=== PATIENT | male | born 1935 ===

== ENCOUNTER 2017-10-28 00:59 | Outpatient (CLI) | payer OTHER | END 2017-10-28 23:59 | disposition home or self-care (01) | LOC: DIABETIC 00:59 | PROVIDERS: ATTEND Specialist | DX: E11.9 Type 2 diabetes mellitus without complications (principal); Z79.82 Long term (current) use of aspirin; Z79.84 Long term (current) use of oral hypoglycemic drugs | CPT/HCPCS: G0108 ==

== ENCOUNTER 2018-01-27 04:57 | Outpatient (CLI) | payer OTHER | END 2018-01-27 23:59 | disposition home or self-care (01) | LOC: DIABETIC 04:57 | PROVIDERS: ATTEND Specialist | DX: E11.9 Type 2 diabetes mellitus without complications (principal) | CPT/HCPCS: G0108 ==

== ENCOUNTER 2018-05-06 01:31 | Outpatient (CLI) | payer OTHER | END 2018-05-06 23:59 | disposition home or self-care (01) | LOC: DIABETIC 01:31 | PROVIDERS: ATTEND Specialist | DX: E11.9 Type 2 diabetes mellitus without complications (principal) | CPT/HCPCS: G0108 ==

== ENCOUNTER 2018-08-11 03:16 | Outpatient (CLI) | payer MEDICARE | END 2018-08-11 23:59 | disposition home or self-care (01) | LOC: DIABETIC 03:16 | PROVIDERS: ATTEND Specialist | DX: E11.9 Type 2 diabetes mellitus without complications (principal); Z79.82 Long term (current) use of aspirin; Z79.84 Long term (current) use of oral hypoglycemic drugs; Z79.4 Long term (current) use of insulin | CPT/HCPCS: G0108 ==